=== PATIENT | male | born 1960 | race Caucasian/White ===

== ENCOUNTER 2021-12-09 14:50 | Inpatient (IN) ==
[2021-12-09] MEDS ORDERED: GI Cocktail 40 ML EACH PO ONE (15:14)
[2021-12-09] MEDS ORDERED: Famotidine 20 MG/2 ML VIAL IVP ONE (15:14)
[2021-12-09] MEDS ORDERED: Ondansetron 4 MG/2 ML VIAL IVP ONE (15:14)
[2021-12-09 15:23] LABS: Basophils % 0.3 %; Eosinophils # 0.2 K/mcL (0.0-0.6); Eosinophils % 1.3 %; Hematocrit 40.3 % (37.5-50.1); Hemoglobin 13.1 g/dL (12.9-16.9); Immature Granulocytes % 0.3 % (0-4); Lymphocytes # 2.1 K/mcL (0.6-4.6); Lymphocytes % 18.4 %; Mean Corpuscular HGB Conc 32.5 g/dL (31.6-35.5); Mean Corpuscular Hemoglobin 29.8 pg (28.0-33.3); Mean Corpuscular Volume 91.6 fL (83.0-100.0); Mean Platelet Volume 10.4 fL (9.4-12.4); Monocytes # 0.8 K/mcL (0.0-1.3); Monocytes % 6.8 %; Neutrophils # 8.4 K/mcL (1.6-8.9); Platelet Count 248 K/mcL (140-400); Red Cell Distribution Width 13.2 % (11.5-14.5); Segmented Neutrophils % 72.9 %; White Blood Count 11.5 K/mcL (4.3-11.1)
[2021-12-09 15:51] LABS: Alanine Aminotransferase 19 Units/L (7-52); Albumin 4.4 g/dL (3.5-5.7); Albumin/Globulin Ratio 1.5 (1.1-2.2); Alkaline Phosphatase 89 Units/L (34-104); Aspartate Amino Transferase 15 Units/L (13-39); BUN/Creatinine Ratio 12 (6-26); Bilirubin,Direct 0.1 mg/dL (0.0-0.2); Bilirubin,Indirect 0.3 mg/dL (0.0-1.0); Bilirubin,Total 0.4 mg/dL (0.3-1.0); Blood Urea Nitrogen 17 mg/dL (8-23); Calcium 9.2 mg/dL (8.6-10.3); Carbon Dioxide 28 mEq/L (23-29); Chloride 104 mEq/L (98-107); Globulin 2.9 g/dL (2.4-3.5); Glucose 182 mg/dL (70-105); Lipase 22 Units/L (11-82); Osmolality,Calculated 298 (280-300); Potassium 3.9 mEq/L (3.5-5.1); Sodium 141 mEq/L (136-145); Total Protein 7.3 g/dL (6.4-8.9); Troponin I 0.06 ng/mL (< 0.04); eGFR For African Americans > 60 (> 60); eGFR For Non-African Americans 50 (> 60)
[2021-12-09] MEDS ORDERED: Ringers Solution, Lactated 1,000 ML IVC ONE (16:43)
[2021-12-09] MEDS ORDERED: Aspirin 81 MG TAB.CHEW PO ONE (16:44)
[2021-12-09] MEDS ORDERED: Naloxone 0.4 MG/ML INJ IVP PRN (17:09)
[2021-12-09] MEDS ORDERED: *HR* Heparin 5,000 UNIT/ML VIAL IVP PRN (17:57)
[2021-12-09] MEDS ORDERED: *HR* Heparin 5,000 UNIT/ML VIAL IVP ONE (17:57)
[2021-12-09] MEDS: Pantoprazole 40 MG VIAL IVP SCH (18:11)
[2021-12-09 18:33] LABS: Hematocrit 38.2 % (37.5-50.1); Hemoglobin 12.5 g/dL (12.9-16.9); Mean Corpuscular HGB Conc 32.7 g/dL (31.6-35.5); Mean Corpuscular Hemoglobin 29.8 pg (28.0-33.3); Mean Corpuscular Volume 91.2 fL (83.0-100.0); Mean Platelet Volume 10.2 fL (9.4-12.4); Platelet Count 228 K/mcL (140-400); Red Blood Count 4.19 M/mcL (4.19-5.50); Red Cell Distribution Width 13.1 % (11.5-14.5); White Blood Count 10.2 K/mcL (4.3-11.1)
[2021-12-09] MEDS: Heparin 25,000UNIT/250ML 1/2NS 25,000 UNIT/250 ML IV.SOLN IVC SCH (18:41)
[2021-12-09 18:44] LABS: Heparin anti-factor XA UFH < 0.04 IU/mL (0.30-0.70); INR 1.1; Prothrombin Time 12.3 Seconds (9.4-12.1)
[2021-12-10 02:02] LABS: Basophils # 0.1 K/mcL (0.0-0.2); Basophils % 0.5 %; Eosinophils # 0.2 K/mcL (0.0-0.6); Eosinophils % 2.5 %; Hematocrit 37.4 % (37.5-50.1); Hemoglobin 12.4 g/dL (12.9-16.9); Immature Granulocytes % 0.3 % (0-4); Lymphocytes # 2.3 K/mcL (0.6-4.6); Lymphocytes % 23.4 %; Mean Corpuscular HGB Conc 33.2 g/dL (31.6-35.5); Mean Corpuscular Hemoglobin 30.3 pg (28.0-33.3); Mean Corpuscular Volume 91.4 fL (83.0-100.0); Mean Platelet Volume 10.4 fL (9.4-12.4); Monocytes # 0.7 K/mcL (0.0-1.3); Monocytes % 7.2 %; Neutrophils # 6.4 K/mcL (1.6-8.9); Platelet Count 223 K/mcL (140-400); Red Blood Count 4.09 M/mcL (4.19-5.50); Red Cell Distribution Width 13.2 % (11.5-14.5); Segmented Neutrophils % 66.1 %; White Blood Count 9.7 K/mcL (4.3-11.1)
[2021-12-10 02:21] LABS: BUN/Creatinine Ratio 13 (6-26); Blood Urea Nitrogen 17 mg/dL (8-23); Calcium 9.2 mg/dL (8.6-10.3); Carbon Dioxide 25 mEq/L (23-29); Chloride 106 mEq/L (98-107); Glucose 146 mg/dL (70-105); Osmolality,Calculated 294 (280-300); Potassium 4.3 mEq/L (3.5-5.1); Sodium 140 mEq/L (136-145); eGFR For African Americans > 60 (> 60); eGFR For Non-African Americans 57 (> 60)
[2021-12-10] MEDS: *HR* Heparin 5,000 UNIT/ML VIAL IVP PRN (03:04)
[2021-12-10] MEDS: Pantoprazole 40 MG VIAL IVP SCH ×2 (05:28→16:08)
[2021-12-10] MEDS: Aspirin Enteric Coated 81 MG Tablet PO SCH (08:14)
[2021-12-10] MEDS: lisinopriL 20 MG TABLET PO SCH (08:14)
[2021-12-10] MEDS ORDERED: Perflutren Lipid Microsphere 1.3 ML in 0.9 % Sodium Chloride 8.7 ML IVP PRN (08:25)
[2021-12-10] MEDS ORDERED: Furosemide 40 MG/4 ML VIAL IVP SCH (09:30)
[2021-12-10] MEDS: Heparin 25,000UNIT/250ML 1/2NS 25,000 UNIT/250 ML IV.SOLN IVC SCH (13:39)
[2021-12-11 01:03] LABS: Basophils # 0.1 K/mcL (0.0-0.2); Basophils % 0.5 %; Eosinophils # 0.3 K/mcL (0.0-0.6); Eosinophils % 3.3 %; Hematocrit 37.4 % (37.5-50.1); Hemoglobin 12.2 g/dL (12.9-16.9); Immature Granulocytes % 0.3 % (0-4); Lymphocytes # 2.3 K/mcL (0.6-4.6); Lymphocytes % 23.6 %; Mean Corpuscular HGB Conc 32.6 g/dL (31.6-35.5); Mean Corpuscular Hemoglobin 29.3 pg (28.0-33.3); Mean Corpuscular Volume 89.9 fL (83.0-100.0); Mean Platelet Volume 10.2 fL (9.4-12.4); Monocytes # 0.7 K/mcL (0.0-1.3); Monocytes % 7.3 %; Neutrophils # 6.2 K/mcL (1.6-8.9); Platelet Count 228 K/mcL (140-400); Red Blood Count 4.16 M/mcL (4.19-5.50); Red Cell Distribution Width 13.3 % (11.5-14.5); White Blood Count 9.5 K/mcL (4.3-11.1)
[2021-12-11 01:18] LABS: Calcium 9.4 mg/dL (8.6-10.3); Potassium 3.9 mEq/L (3.5-5.1)
[2021-12-11] MEDS: *HR* Heparin 5,000 UNIT/ML VIAL IVP PRN (02:45)
[2021-12-11] MEDS: Heparin 25,000UNIT/250ML 1/2NS 25,000 UNIT/250 ML IV.SOLN IVC SCH (05:18)
[2021-12-11] MEDS: Pantoprazole 40 MG VIAL IVP SCH ×2 (05:19→18:10)
[2021-12-11] MEDS: lisinopriL 20 MG TABLET PO SCH (09:00)
[2021-12-11] MEDS: Aspirin Enteric Coated 81 MG Tablet PO SCH (09:00)
[2021-12-11] MEDS: 0.9 % Sodium Chloride 500 ML IV SCH (10:48)
[2021-12-11 17:22] LABS: BUN/Creatinine Ratio 15 (6-26); Blood Urea Nitrogen 18 mg/dL (8-23); Calcium 9.2 mg/dL (8.6-10.3); Carbon Dioxide 28 mEq/L (23-29); Chloride 104 mEq/L (98-107); Glucose 209 mg/dL (70-105); Osmolality,Calculated 298 (280-300); Potassium 3.8 mEq/L (3.5-5.1); Sodium 140 mEq/L (136-145); eGFR For African Americans > 60 (> 60); eGFR For Non-African Americans > 60 (> 60)
[2021-12-12 01:19] LABS: Basophils % 0.4 %; Eosinophils # 0.4 K/mcL (0.0-0.6); Eosinophils % 3.4 %; Hematocrit 38.4 % (37.5-50.1); Hemoglobin 12.5 g/dL (12.9-16.9); Immature Granulocytes % 0.3 % (0-4); Lymphocytes # 2.4 K/mcL (0.6-4.6); Lymphocytes % 21.9 %; Mean Corpuscular HGB Conc 32.6 g/dL (31.6-35.5); Mean Corpuscular Hemoglobin 29.4 pg (28.0-33.3); Mean Corpuscular Volume 90.4 fL (83.0-100.0); Mean Platelet Volume 10.2 fL (9.4-12.4); Monocytes # 0.8 K/mcL (0.0-1.3); Neutrophils # 7.2 K/mcL (1.6-8.9); Platelet Count 230 K/mcL (140-400); Red Blood Count 4.25 M/mcL (4.19-5.50); Red Cell Distribution Width 13.2 % (11.5-14.5); White Blood Count 10.7 K/mcL (4.3-11.1)
[2021-12-12] MEDS: 0.9 % Sodium Chloride 500 ML IV SCH (02:25)
[2021-12-12 03:19] LABS: BUN/Creatinine Ratio 17 (6-26); Blood Urea Nitrogen 20 mg/dL (8-23); Calcium 9.3 mg/dL (8.6-10.3); Carbon Dioxide 28 mEq/L (23-29); Chloride 104 mEq/L (98-107); Glucose 130 mg/dL (70-105); Osmolality,Calculated 294 (280-300); Potassium 3.9 mEq/L (3.5-5.1); Sodium 140 mEq/L (136-145); eGFR For African Americans > 60 (> 60); eGFR For Non-African Americans > 60 (> 60)
[2021-12-12] MEDS: Pantoprazole 40 MG VIAL IVP SCH ×2 (05:15→16:19)
[2021-12-12] MEDS: Aspirin Enteric Coated 81 MG Tablet PO SCH (09:12)
[2021-12-12] MEDS ORDERED: *HR* Midazolam HCl 2 MG/2 ML VIAL ONE ×2 (13:07→13:52)
[2021-12-12] MEDS ORDERED: *HR* FentaNYL (PF) 100 MCG/2 ML VIAL ONE (13:07)
[2021-12-12] MEDS ORDERED: ISOVUE-370 200 ML INFUS..BTL ONE (13:08)
[2021-12-12] MEDS ORDERED: Heparin 1,000 UNITS/500 mL 500 ML ONE (13:08)
[2021-12-12] MEDS ORDERED: Nitroglycerin 1,000 MCG/5 ML VIAL IV ONE (13:08)
[2021-12-12] MEDS ORDERED: *HR* Heparin 10,000 UNIT/10 ML VIAL ONE (13:08)
[2021-12-12 16:32] VITALS: BP 135/87; PULSE 90; TEMP 97.8; O2SAT 98
[2021-12-12 19:14] LABS: Influenza A PCR Negative (Negative); Influenza B PCR Negative (Negative); Resp. Syncytial Virus PCR Negative (Negative)
[2021-12-12 19:17] LABS: SARS-CoV-2 by PCR (In House) Negative (Negative)
== END 2021-12-12 21:10 | disposition other institution (70) | DRG 280 ==
LOC: EMEROOARM 14:50 → 3BNU 14:50
PROVIDERS: ADMIT Hospitalist; ATTEND Hospitalist